=== PATIENT | male | born 1955 | race Caucasian/White ===

== ENCOUNTER 2018-10-19 20:53 | Emergency (ER) | payer OTHER | END 2018-10-19 21:22 | disposition left against medical advice (07) | LOC: UCCORT 20:53 | DX: R20.8 Other disturbances of skin sensation (principal); Z53.21 Procedure and treatment not carried out due to patient leaving prior to being seen by health care provider ==

== ENCOUNTER 2018-11-15 13:45 | Emergency (ER) | payer MEDICARE, MEDICAID ==
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
[2018-11-15 14:39] VITALS: BP 140/90
== END 2018-11-15 14:48 | disposition home or self-care (01) ==
LOC: UCCORT 13:45
DX: T14.8XXA Other injury of unspecified body region, initial encounter (principal); F17.210 Nicotine dependence, cigarettes, uncomplicated; Z88.8 Allergy status to other drugs, medicaments and biological substances; W57.XXXA Bitten or stung by nonvenomous insect and other nonvenomous arthropods, initial encounter; Y92.9 Unspecified place or not applicable
CPT/HCPCS: 99212; G0463